=== PATIENT | male | born 1975 | race Caucasian/White ===

== ENCOUNTER 2021-10-15 19:58 | Emergency (ER) | payer OTHER, SELFPAY ==
[2021-10-15 20:10] VITALS: BP 198/100; PULSE 70; RESP 18; TEMP 37; O2SAT 97; BMI 36.3
--- NOTE | 2021-10-15 20:17 | W.ED.BACK ---
HPI - Back Pain/Injury General: Chief Complaint: Back Pain/Injury Stated Complaint: low back pain Time Seen by Provider: 10/15/21 20:16 History of Present Illness: 46-year-old male patient comes in today with complaints of right rib and flank pain. Patient reports yesterday he was at work when a rack with oxygen tanks on it fell over causing the rack to strike him against the right side. Patient comes in tonight due to worsening pain throughout the day and discomfort. Patient does have a noticeable abrasion to his right posterior rib area. Patient moves all extremities well. Patient is tender to palpation of the chest wall. Associated symptoms: Deny abdominal pain Review of Systems General: Reports: 10 or more systems reviewed and unremarkable except in HPI and below Card: Denies: chest pain Resp: Denies: dyspnea GI: Denies: abdominal pain Musc: Reports: back pain Skin/Breast: Reports: new lesions Physical Exam Const: COMMON NORMALS: alert HENMT: COMMON NORMALS: atraumatic HEAD & SCALP: atraumatic Neck/C-Spine: COMMON NORMALS: full ROM Chest: CHEST: Yes tenderness rib (posterior right) and other (linear abrasion posterior right) Resp: COMMON NORMALS: normal respiratory effort and clear to auscultation bilaterally AUSCULTATION: clear to auscultation bilaterally Cardio: COMMON NORMALS: regular rate RATE: regular rate Back/Pelvis: THORACIC SPINE/UPPER BACK: No thoracic spinal tenderness and Yes paraspinal muscle tenderness Thoracic paraspinal muscle tenderness: right LUMBAR SPINE/LOWER BACK: No lumbar spinal tenderness and Yes paraspinal muscle tenderness Lumbar paraspinal muscle tenderness: right Neuro: SENSORIUM/ORIENTATION: Yes alert Skin: TRAUMA: abrasion (right posterior ribs) Course Vital Signs: Vital signs: Vital Signs Temperature 98.6 F 10/15/21 20:10 Pulse Rate 70 10/15/21 20:10 Respiratory Rate 18 10/15/21 20:10 Blood Pressure 198/100 10/15/21 20:10 Pulse Oximetry 97 10/15/21 20:10 MDM - Back Pain/Injury Medical Decision Making 46-year-old male patient comes in with right flank pain after injury at work yesterday. Patient was working when a shelf holding some oxygen containers fell over striking him against the right posterior rib area. On exam patient has a linear abrasion to the posterior right chest wall with tenderness on palpation. No obvious deformity, subcu emphysema, or crepitus is noted to the ribs. Respirations are even lungs are clear to auscultation. Patient has tenderness to the ribs. No palpable tenderness is noted along the spine. Differential diagnosis includes rib fracture, abrasions, contusion. X-ray did not notice any obvious fracture. Reviewed exam with patient with recommendations for treatment and follow-up. Patient reported understanding. Discharge Plan Discharge Patient Disposition: Home Clinical Impression: Contusion of back wall of thorax Qualifiers: Encounter type: initial encounter Thoracic wall location detail: right Qualified Code(s): S20.221A - Contusion of right back wall of thorax, initial encounter Condition: Stable Prescriptions: New hydrocodone-acetaminophen 5-325 mg tablet 1 tab PO Q8H PRN (Reason: pain (scale score 7-10)) Qty: 6 0RF diclofenac sodium 75 mg tablet,delayed release (DR/EC) 75 mg PO BID Qty: 20 0RF ondansetron 4 mg tablet,disintegrating 4 mg PO Q8H PRN (Reason: nausea and vomiting) Qty: 6 0RF Discharge Orders: Discharge ED (Routine); Ordered 10/15/21 Ordered By: David Falk Referrals: Sherice Hyman MD [Physician] - Discharge Diet: Usual diet Discharge Activity: Increase activity as tolerated Patient Instructions: Musculoskeletal Pain (ED), Opioid Safety Activity Restrictions/Additional Instructions: Drink plenty of water with medication. Take hydrocodone with food if it makes you nauseous. Use acetaminophen for better control of pain. Use diclofenac routinely for pain and inflammation. Use hydrocodone for severe pain. Follow-up with primary care or Workmen's Comp. healthcare provider for further instruction and evaluation. Return to ER for new concerns. Coding Level of Care Code ED [employer] for [facility]ha Fwd Exam Comprehensive
--- NOTE | 2021-10-15 20:32 | XRR_ITS ---
PROCEDURE INFORMATION: Exam: XR Lumbosacral Spine Exam date and time: 10/15/2021 8:50 PM Age: 46 years old Clinical indication: Low back pain; Additional info: Injury TECHNIQUE: Imaging protocol: XR of the lumbosacral spine. Views: 2 or 3 views. COMPARISON: No relevant prior studies available. FINDINGS: Bones/joints: Moderate lower thoracic as well as posterior L5/S1 disc space narrowing with mild multilevel productive degenerative endplate changes. Soft tissues: Unremarkable. XR/XR lumbar spine 2-3V* 18101 IMPRESSION: 1. Negative for fracture or dislocation. 2. Moderate lower thoracic as well as posterior L5/S1 disc space narrowing with mild multilevel productive degenerative endplate changes.
--- NOTE | 2021-10-15 20:32 | XRR_ITS ---
PROCEDURE INFORMATION: Exam: XR Right Ribs with PA Chest Exam date and time: 10/15/2021 8:50 PM Age: 46 years old Clinical indication: Other: RT. Mid rib pain; Additional info: Injury TECHNIQUE: Imaging protocol: XR Right ribs with PA chest. Views: 3 views COMPARISON: No relevant prior studies available. FINDINGS: Lungs: Unremarkable. No consolidation. Pleural spaces: Unremarkable. No pleural effusion. No pneumothorax. Heart/Mediastinum: Unremarkable. No cardiomegaly. Bones/joints: Right 10th posterior rib fracture suspected. XR/XR ribs RT mn 3V w CXR1V [id number] IMPRESSION: Right 10th posterior rib fracture suspected.
[2021-10-15] MEDS: orphenadrine 30 mg/mL Inj 2 mL 60 MG IM (21:15)
[2021-10-15] MEDS: ketorolac 30 mg/mL INJ IM (21:15)
[2021-10-15] MEDS: ondansetron 4 MG Tablet PO (21:24)
[2021-10-15] MEDS: HYDROcodone-acetaminophen 7.5-325 mg Tablet 1 TAB PO (21:25)
== END 2021-10-15 21:33 | disposition home or self-care (01) ==
PROVIDERS: Emergency Provider Nurse Practitioner Family
DX: S20.221A Contusion of right back wall of thorax, initial encounter (principal); W22.8XXA Striking against or struck by other objects, initial encounter
CPT/HCPCS: 71101; 72100; 96372; 99283; J1885; J2360; Q0162